=== PATIENT | male | born 1995 | race Caucasian/White ===

== ENCOUNTER → 2016-11-07 | Outpatient (CLI) | payer OTHER ==
--- NOTE | 2016-11-07 13:05 | DIAGNOSTIC IMAGING REPORT ---
LEFT SHOULDER MIN 2 VIEWS ROUTINE CLINICAL HISTORY: LEFT SHOULDER PAIN COMPARISON: None. DISCUSSION: No fractures or dislocations are visualized. There are no visible particular calcifications. IMPRESSION: Unremarkable conventional radiographic evaluation of the left shoulder. Electronically signed by: Jean Carlos Cox M.D. 11/07/2016 1:04 PM Dictated Date/Time: 11/07/2016 1:03 PM
== END | disposition home or self-care (01) ==
LOC: C.RAD1850 12:54
PROVIDERS: ATTEND Family Medicine
DX: M24.412 Recurrent dislocation, left shoulder (principal)